=== PATIENT | male | born 1995 | race Asian ===

== ENCOUNTER 2019-11-02 16:58 | Emergency (ER) | payer OTHER ==
[~2019-11-02] VITALS: Ht 182.9 cm; Wt 100.0 kg
[~2019-11-02 16:58] MED LIST: CLIN-97 PO; OMEP40CA13 PO
[2019-11-02 17:00] VITALS: BP 141/92
[2019-11-02] MEDS ORDERED: LIDOcaine 1% W/epiNEPHrine 1:200,000 10ml vial IJ ONE (18:10)
[2019-11-02] MEDS ORDERED: TETanus/Pertussis (Acell)/Diphther VAC/PF (Tdap-Adult) 0.5ml syringe IMVAC ONE (18:10)
[2019-11-02] MEDS ORDERED: CEPH250T PO (18:11)
== END 2019-11-02 19:19 | disposition home or self-care (01) ==
LOC: ER 16:59
DX: S61.210A Laceration without foreign body of right index finger without damage to nail, initial encounter (principal); S61.511A Laceration without foreign body of right wrist, initial encounter; Z72.89 Other problems related to lifestyle; Z79.899 Other long term (current) drug therapy; Z88.0 Allergy status to penicillin; W45.8XXA Other foreign body or object entering through skin, initial encounter; Y93.89 Activity, other specified; Y92.89 Other specified places as the place of occurrence of the external cause; Y99.8 Other external cause status
CPT/HCPCS: 12001; 90471; 90715; 99283